=== PATIENT | female | born 1985 | race Caucasian/White ===

== ENCOUNTER 2016-09-07 15:21 | Outpatient (CLI) ==
[2016-07-06 11:06] VITALS: BMI 18.1
[2016-09-07 15:36] LABS: BASOPHILS # (AUTO) 0.1 K/uL (0-0.2); BASOPHILS % (AUTO) 1.4 % (0.0-3.0); EOSINOPHILS # (AUTO) 0.6 K/ul (0.0-0.7); EOSINOPHILS % (AUTO) 9.6 % (0.0-7.0); HEMATOCRIT 40.8 % (37.0-47.0); HEMOGLOBIN 13.6 g/dl (12.0-16.0); IMMATURE GRANULOCYTE % (AUTO) 0.3 % (0.0-5.0); LYMPHOCYTES # (AUTO) 1.5 K/uL (0.60-3.4); MEAN CORPUSCULAR HEMOGLOBIN 27.8 pg (27.0-31.0); MEAN CORPUSCULAR HGB CONC 33.3 (31.8-35.4); MEAN CORPUSCULAR VOLUME 83.4 fl (81.0-99.0); MONOCYTES # (AUTO) 0.5 K/uL (0.4-2.0); MONOCYTES % (AUTO) 8.2 (0-10); NEUTROPHILS # (AUTO) 3.9 K/ul (2.0-6.9); NEUTROPHILS % (AUTO) 58.5; PLATELET COUNT 223 10^3/uL (140-440); RED BLOOD COUNT 4.89 10^6/ul (4.20-5.40); WHITE BLOOD COUNT 6.58 K/ul (4.6-10.2)
[2016-09-07 15:59] LABS: BILIRUBIN,URINE Negative (NEGATIVE); KETONES,URINE Negative (NEGATIVE); LEUKOCYTE ESTERASE ,URINE Negative (NEGATIVE); NITRITE,URINE Negative (NEGATIVE); PROTEIN,URINE Negative (NEGATIVE); URINE, BLOOD Negative (NEGATIVE)
[2016-09-07 16:02] LABS: ALBUMIN 4.2 g/dL (3.4-5.0); ALBUMIN/GLOBULIN RATIO 1.35; ANION GAP 12.3; BILIRUBIN,TOTAL 0.58 mg/dL (0.00-1.20); BUN/CREATININE RATIO 10.98; CALCIUM 9.7 mg/dL (8.2-10.2); CREATININE 0.91 mg/dL (0.60-1.30); POTASSIUM 4.3 mmol/L (3.5-5.10); TOTAL PROTEIN 7.3 g/dL (6.4-8.2)
--- NOTE | 2016-09-07 16:05 | DI ---
EXAM: Two views of the chest. History: Fever. Findings: Heart size is normal. No focal consolidation. No appreciable pleural fluid and no pneum othorax. No acute osseous abnormalities. Impression: No acute cardiopulmonary process.
[2016-09-07 16:08] LABS: ADD URINE MICROSCOPIC NO
== END 2016-09-07 15:22 | disposition home or self-care (01) ==
LOC: LAB 15:21
PROVIDERS: ATTEND Nurse Practitioner Family
DX: R50.9 Fever, unspecified (principal); D64.9 Anemia, unspecified; R05 Cough; J98.8 Other specified respiratory disorders
CPT/HCPCS: 36415; 80053; 81001; 82150; 83690; 85025

== ENCOUNTER 2017-05-20 13:38 | Emergency (ER) ==
[2017-05-20 13:42] VITALS: BP 118/80; TEMP 98.5; BMI 19.5
[2017-05-20] MEDS ORDERED: NORCO 10-325 PO STA (14:07)
[2017-05-20 14:11] LABS: BASOPHILS # (AUTO) 0.1 K/uL (0-0.2); BASOPHILS % (AUTO) 1.2 % (0.0-3.0); EOSINOPHILS # (AUTO) 0.4 K/ul (0.0-0.7); EOSINOPHILS % (AUTO) 5.8 % (0.0-7.0); HEMATOCRIT 38.9 % (37.0-47.0); HEMOGLOBIN 13.8 g/dl (12.0-16.0); IMMATURE GRANULOCYTE % (AUTO) 0.3 % (0.0-5.0); LYMPHOCYTES % (AUTO) 26.9 (10.0-50.0); MEAN CORPUSCULAR HGB CONC 35.5 (31.8-35.4); MEAN CORPUSCULAR VOLUME 84.6 fl (81.0-99.0); MONOCYTES # (AUTO) 0.4 K/uL (0.4-2.0); MONOCYTES % (AUTO) 5.4 (0-10); NEUTROPHILS # (AUTO) 4.5 K/ul (2.0-6.9); NEUTROPHILS % (AUTO) 60.4; PLATELET COUNT 246 10^3/uL (140-440); WHITE BLOOD COUNT 7.44 K/ul (4.6-10.2)
[2017-05-20 14:36] LABS: ALBUMIN/GLOBULIN RATIO 1.33; ANION GAP 12.2; BILIRUBIN,TOTAL 0.51 mg/dL (0.00-1.20); BUN/CREATININE RATIO 11.9; CALCIUM 9.5 mg/dL (8.2-10.2); CREATININE 0.84 mg/dL (0.60-1.30); POTASSIUM 4.2 mmol/L (3.5-5.10)
--- NOTE | 2017-05-20 15:46 | CT ---
EXAM: CTA CHEST (PE PROTOCOL) HISTORY: Posterior chest pain TECHNIQUE: CTA with intravenous contrast. Multiplanar images were provided with 3-D reconstructions . 100 mL Omnipaque. COMPARISON: None FINDINGS: No pulmonary arterial filling defect. Normal heart size. No pericardial effusion. Normal thoracic aorta. No mediastinal or hilar lymphadenopathy. Lungs are clear. Normal vascularity. No pleural fluid or pleural thickening. There is no pneumotho rax. The bones are within normal limits. Prominent liver. IMPRESSION: 1. No pulmonary arterial thromboembolism or aortic abnormality identified. 2. Lungs are clear. 3. Prominent liver size.
--- NOTE | 2017-05-20 16:04 | ED.PDOC ---
General ED Provider: Dr. STEPHANIE CORCORAN Chief Complaint: Back Pain Stated Complaint: thoracic back pain Time Seen by Physician: 13:39 Mode of Arrival: Walk-In Information Source: Patient Exam Limitations: No limitations Primary Care Provider: RIKKI LARIOS Nursing and Triage Documentation Reviewed and Agree: Yes Musculoskeletal Complaint Exam - Back Pain Complaint/Exam Mechanism of Injury: Reports: No known trauma Onset/Duration: upper back pain atraumatic Symptoms Are: Still present Timing: Constant Episodes Lasting: Days Initial Severity: Moderate Current Severity: Moderate Location: Reports: Discrete (between shoulder blades) Character: Reports: Sharp Aggravating: Reports: Movements, Lifting, Bending, Walking Alleviating: Reports: Rest, Position Associated Signs and Symptoms: Denies: Swelling, Redness, Bruising, Fever, Weakness, Numbness, Tingling, Abdominal pain, Flank pain, Bladder incontinence, Bowel incontinence, Weight loss, Pain with weight bearing Related History: Reports: Similar episode TAD Risk Factors: Reports: None AAA Risk Factors: Reports: None Cauda Equina Risk Factors: Reports: None Epidural Abcess Risk Factors: Reports: None Related Surgical History: Reports: None Focal Tenderness: No Paraspinal Muscle Tenderness: No Paraspinal Muscle Spasm: No Scoliosis: No Lordosis: No Kyphosis: No SLR Test: Right Negative, Left Negative Hip Motion Testing Pain: Right Negative, Left Negative Focal Weakness: Present: None Focal Sensory Loss: Present: None Gait: Present: Normal Differential Diagnoses: Strain, Sprain Review of Systems - Review Of Systems Constitutional: Reports: No symptoms Eyes: Reports: No symptoms Ears, Nose, Mouth, Throat: Reports: No symptoms Respiratory: Reports: No symptoms Cardiac: Reports: No symptoms GI: Reports: No symptoms : Reports: No symptoms Musculoskeletal: Reports: Back pain Skin: Reports: No symptoms Neurological: Reports: No symptoms Endocrine: Reports: No symptoms Hematologic/Lymphatic: Reports: No symptoms All Other Systems: Reviewed and Negative Past Medical History - Past Medical History Previously Healthy: Yes Endocrine: Reports: None Cardiovascular: Reports: None Respiratory: Reports: None Hematological: Reports: None Gastrointestinal: Reports: None Genitourinary: Reports: None Neuro/Psych: Reports: None Musculoskeletal: Reports: None Cancer: Reports: None Last Menstrual Period: n/a - Surgical History General Surgical History: Reports: None - Family History Family History: Reports: None - Social History Smoking Status: Former smoker Hx Substance Use: No Alcohol Screening: None Physical Exam - Physical Exam Appearance: Well-appearing, No pain distress, Well-nourished Eyes: MILLIE, EOMI, Conjunctiva clear ENT: Ears normal, Nose normal, Oropharynx normal Respiratory: Airway patent, Breath sounds clear, Breath sounds equal, Respirations nonlabored Cardiovascular: RRR, Pulses normal, No rub, No murmur GI/: Soft, Nontender, No masses, Bowel sounds normal, No Organomegaly Musculoskeletal: Normal strength, ROM intact, No edema, No calf tenderness Skin: Warm, Dry, Normal color Neurological: Sensation intact, Motor intact, Reflexes intact, Cranial nerves intact, Alert, Oriented Psychiatric: Affect appropriate, Mood appropriate Interpretation - Radiology Interpretation Radiology Interpretation By: Radiologist Radiology Results: No acute changes Critical Care Note - Critical Care Note Total Time (mins): 0 Course - Course Hematology/Chemistry: 05/20/17 14:00 05/20/17 14:00 Orders, Labs, Meds: Lab Review 05/20/17 05/20/17 14:00 14:00 WBC 7.44 RBC 4.60 Hgb 13.8 Hct 38.9 MCV 84.6 MCH 30.0 MCHC 35.5 H RDW Coeff of Prince 12.6 Plt Count 246 Immature Gran % (Auto) 0.3 Neut % (Auto) 60.4 Lymph % (Auto) 26.9 Lucas % (Auto) 5.4 Eos % (Auto) 5.8 Baso % (Auto) 1.2 Immature Gran # (Auto) 0.0 Neut # 4.5 Lymph # 2.0 Lucas # 0.4 Eos # 0.4 Baso # 0.1 Sodium 143 Potassium 4.2 Chloride 108 H Carbon Dioxide 27 Anion Gap 12.2 BUN 10 Creatinine 0.84 Estimated GFR (MDRD) 78.00 BUN/Creatinine Ratio 11.90 Glucose 85 Calcium 9.5 Total Bilirubin 0.51 AST 11 L ALT 7 L Alkaline Phosphatase 67 Total Protein 7.0 Albumin 4.0 Globulin 3.0 Albumin/Globulin Ratio 1.33 Orders Category Date Time Status EKG-(ED ONLY) Stat CARDIO 05/20/17 13:55 Ordered NPO REMINDER: IMAGING ONCE CARE 05/20/17 13:54 Active IV [ED IV/MEDIPORT/POWERPORT] .ONCE EMERGENCY 05/20/17 14:02 Active CBC W/ AUTO DIFF Stat LAB 05/20/17 13:54 Ordered COMPREHENSIVE METABOLIC PANEL Stat LAB 05/20/17 13:54 Ordered 0.9 % Sodium Chloride [Saline Flush] MEDS 05/20/17 14:02 Ordered 1 syr IVF PRN PRN Hydrocodone Bit/Acetaminophen [[place] 10-325] MEDS 05/20/17 14:07 Stat 1 tab PO ONCE STA CTA ANGIO CHEST Stat RADS 05/20/17 13:54 Ordered Medications Generic Name Dose Route Start Last Admin Trade Name Freq PRN Reason Stop Dose Admin Sodium Chloride 1 syr 05/20/17 14:02 Saline Flush IVF PRN PRN To flush IV Discontinued Medications Generic Name Dose Route Start Last Admin Trade Name Freq PRN Reason Stop Dose Admin Acetaminophen/Hydrocodone Bitart 1 tab 05/20/17 14:07 05/20/17 14:29 [place] 10-325 PO 05/20/17 14:08 1 tab ONCE STA Administration Vital Signs: Temp Pulse Resp BP Pulse Ox 05/20/17 13:39 98.5 F 73 20 118/80 98 Departure - Departure Time of Disposition: 16:10 Disposition: HOME SELF-CARE Discharge Problem: Backache Thoracic back pain Qualifiers: Chronicity: acute Back pain laterality: midline Qualified Code(s): M54.6 - Pain in thoracic spine Instructions: Back Pain (ED) Condition: Good Pt referred to PMD for follow-up: Yes Additional Instructions: Please call your Family Physician as soon as possible to schedule a follow-up appointment. Allergies/Adverse Reactions: Allergies No Known Allergies Allergy (Verified 05/20/17 13:42) Home Medications: Ambulatory Orders 1 [No Reported Medications] 05/20/17
== END 2017-05-20 16:20 | disposition home or self-care (01) ==
LOC: ED 13:38
DX: M54.6 Pain in thoracic spine (principal)
CPT/HCPCS: 36415; 80053; 85025; 93005; 93010; 99283

== ENCOUNTER 2017-07-31 13:16 | Emergency (ER) ==
[2017-07-31 13:22] VITALS: BP 111/74; TEMP 100.5; BMI 18.6
[2017-07-31] MEDS ORDERED: TORADOL IM STA (13:35)
--- NOTE | 2017-07-31 13:38 | ED.PDOC ---
General ED Provider: Dr. RIKKI CORTES Chief Complaint: Back Pain Stated Complaint: Hurting in the right side back, also frequency and urgency of urination. Time Seen by Physician: 13:35 Mode of Arrival: Walk-In Information Source: Patient Primary Care Provider: RIKKI CORTES[facility] Nursing and Triage Documentation Reviewed and Agree: Yes Musculoskeletal Complaint Exam - Back Pain Complaint/Exam Mechanism of Injury: Reports: No known trauma Symptoms Are: Still present Timing: Constant Episodes Lasting: Hours Initial Severity: Moderate Current Severity: Moderate Location: Reports: Discrete Character: Reports: Dull, Aching Aggravating: Reports: Movements Alleviating: Reports: None Associated Signs and Symptoms: Reports: Fever, Flank pain. Denies: Swelling, Redness, Bruising, Weakness, Numbness, Tingling, Abdominal pain, Bladder incontinence, Bowel incontinence, Weight loss, Pain with weight bearing TAD Risk Factors: Reports: None AAA Risk Factors: Reports: None Cauda Equina Risk Factors: Reports: None Epidural Abcess Risk Factors: Reports: None Related Surgical History: Reports: None Focal Tenderness: Yes Paraspinal Muscle Tenderness: Yes Paraspinal Muscle Spasm: Yes Scoliosis: No Lordosis: No Kyphosis: No SLR Test: Right Negative, Left Negative Hip Motion Testing Pain: Right Negative, Left Negative Focal Weakness: Present: None Focal Sensory Loss: Present: None Gait: Present: Normal Differential Diagnoses: Renal Colic, Strain, Other (UTI) Review of Systems - Review Of Systems Constitutional: Reports: Fever, Malaise, Weakness Eyes: Reports: No symptoms Ears, Nose, Mouth, Throat: Reports: No symptoms Respiratory: Reports: No symptoms Cardiac: Reports: No symptoms GI: Reports: No symptoms : Reports: Dysuria, Frequency Musculoskeletal: Reports: Back pain Skin: Reports: No symptoms Neurological: Reports: No symptoms Endocrine: Reports: No symptoms Hematologic/Lymphatic: Reports: No symptoms All Other Systems: Reviewed and Negative Past Medical History - Past Medical History Previously Healthy: Yes Endocrine: Reports: None Cardiovascular: Reports: None Respiratory: Reports: None Hematological: Reports: None Gastrointestinal: Reports: None Genitourinary: Reports: None Neuro/Psych: Reports: None Musculoskeletal: Reports: None Cancer: Reports: None Last Menstrual Period: na - Surgical History General Surgical History: Reports: None - Family History Family History: Reports: None - Social History Smoking Status: Current some day smoker Hx Substance Use: No Alcohol Screening: None - Immunizations Tetanus Shot up to Date: Yes Physical Exam - Physical Exam Appearance: Ill-appearing Eyes: MILLIE, EOMI, Conjunctiva clear ENT: Ears normal, Nose normal, Oropharynx normal Respiratory: Airway patent, Breath sounds clear, Breath sounds equal, Respirations nonlabored Cardiovascular: RRR, Pulses normal, No rub, No murmur GI/: Soft, Tender Musculoskeletal: Normal strength, ROM intact, No edema, No calf tenderness Skin: Warm, Dry, Normal color Neurological: Sensation intact, Motor intact, Reflexes intact, Cranial nerves intact, Alert, Oriented Psychiatric: Affect appropriate, Mood appropriate Interpretation - Radiology Interpretation Radiology Interpretation By: Radiologist Radiology Results: Positive Exam Interpreted: CT Scan Critical Care Note - Critical Care Note Total Time (mins): 15 Course - Course Hematology/Chemistry: 07/31/17 13:52 07/31/17 13:52 Orders, Labs, Meds: Lab Review 07/31/17 07/31/17 07/31/17 13:26 13:26 13:52 WBC 10.06 RBC 4.84 Hgb 14.0 Hct 40.0 MCV 82.6 MCH 28.9 MCHC 35.0 RDW Coeff of [place] 12.2 Plt Count 179 Immature Gran % (Auto) 0.2 Neut % (Auto) 85.5 Lymph % (Auto) 8.7 L [place] % (Auto) 5.0 Eos % (Auto) 0.2 Baso % (Auto) 0.4 Immature Gran # (Auto) 0.0 Neut # 8.6 H Lymph # 0.9 [place]ven # 0.5 Eos # 0.0 Baso # 0.0 Sodium Potassium Chloride Carbon Dioxide Anion Gap BUN Creatinine Estimated GFR (MDRD) BUN/Creatinine Ratio Glucose Calcium Total Bilirubin AST ALT Alkaline Phosphatase Total Protein Albumin Globulin Albumin/Globulin Ratio Urine Color Yellow Urine Clarity Cloudy Urine pH 5.5 Ur Specific Hew[place] 1.010 Urine Protein 2+ Urine Glucose (UA) Negative Urine Ketones 3+ Urine Blood 2+ Urine Nitrite Negative Urine Bilirubin 1+ Urine Urobilinogen 2.0 Ur Leukocyte Esterase 2+ Urine Microscopic RBC 5-10 Urine Microscopic WBC 20-30 Ur Squamous Epith Cells 2-5 Urine Bacteria 2+ Urine Test Negative 07/31/17 13:52 WBC RBC Hgb Hct MCV MCH MCHC RDW Coeff of Prince Plt Count Immature Gran % (Auto) Neut % (Auto) Lymph % (Auto) [place] % (Auto) Eos % (Auto) Baso % (Auto) Immature Gran # (Auto) Neut # Lymph # Craven # Eos # Baso # Sodium 135 L Potassium 3.4 L Chloride 102 Carbon Dioxide 20 L Anion Gap 16.4 BUN 13 Creatinine 0.89 Estimated GFR (MDRD) 73.00 BUN/Creatinine Ratio 14.60 Glucose 95 Calcium 9.7 Total Bilirubin 1.13 AST 10 L ALT 8 L Alkaline Phosphatase 75 Total Protein 7.8 Albumin 3.8 Globulin 4.0 Albumin/Globulin Ratio 0.95 Urine Color Urine Clarity Urine pH Ur Specific Hew[place] Urine Protein Urine Glucose (UA) Urine Ketones Urine Blood Urine Nitrite Urine Bilirubin Urine Urobilinogen Ur Leukocyte Esterase Urine Microscopic RBC Urine Microscopic WBC Ur Squamous Epith Cells Urine Bacteria Urine Test Orders Category Date Time Status CBC W/ AUTO DIFF Stat LAB 07/31/17 13:52 Completed CMP [COMPREHENSIVE METABOLIC PANEL] Stat LAB 07/31/17 13:52 Completed URINALYSIS C & S IF INDICATED Stat LAB 07/31/17 13:26 Completed URINE CULTURE Stat LAB 07/31/17 13:26 Received URINE Stat LAB 07/31/17 13:26 Completed Ceftriaxone Sodium [Rocephin] MEDS 07/31/17 14:09 Discontinued 1 gm IM ONCE STA Ketorolac Tromethamine [Toradol] MEDS 07/31/17 13:35 Discontinued 30 mg IM ONCE STA Lidocaine HCl/Pf [Lidocaine HCl 1% Sdv] MEDS 07/31/17 14:09 Discontinued 5 ml SUBCUT ONCE STA CT ABDOMEN/PELVIS WO CONTRAST Stat RADS 07/31/17 13:35 Completed Medications Discontinued Medications Generic Name Dose Route Start Last Admin Trade Name Ana PRN Reason Stop Dose Admin Ceftriaxone Sodium 1 gm 07/31/17 14:09 07/31/17 14:43 Rocephin IM 07/31/17 14:10 1 gm ONCE STA Administration Ketorolac Tromethamine 30 mg 07/31/17 13:35 07/31/17 13:52 Toradol IM 07/31/17 13:36 30 mg ONCE STA Administration Lidocaine HCl 5 ml 07/31/17 14:09 07/31/17 14:44 Lidocaine Hcl 1% Sdv SUBCUT 07/31/17 14:10 1.2 ml ONCE STA Administration Vital Signs: Temp Pulse Resp BP Pulse Ox 07/31/17 13:17 100.5 F H 103 H 16 111/74 99 Departure - Departure Time of Disposition: 15:32 Disposition: HOME SELF-CARE Discharge Problem: Pyelonephritis Instructions: Urinary Tract Infection in Women (ED) Condition: Good Pt referred to PMD for follow-up: Yes Additional Instructions: Increase Hydration Patient wanted out patient treatment f/u at [facility] in 1-2 days Prescriptions: Ciprofloxacin HCl [Cipro] 250 mg PO Q12HR #14 tablet Hydrocodone/Acetaminophen [[place] 5-325 Tablet] 1 tab PO TID PRN #10 tablet PRN Reason: PAIN Allergies/Adverse Reactions: Allergies No Known Allergies Allergy (Verified 07/31/17 13:25) Home Medications: Ambulatory Orders Hydrocodone/Acetaminophen [[place] 10-325 Tablet] 1 each PO Q8HR #10 tablet Ciprofloxacin HCl [Cipro] 250 mg PO Q12HR #14 tablet 07/31/17 Hydrocodone/Acetaminophen [Leon 5-325 Tablet] 1 tab PO TID PRN #10 tablet 07/31 Disposition Discussed With: Patient, Family
[2017-07-31 13:40] LABS: BILIRUBIN,URINE 1+ (NEGATIVE); KETONES,URINE 3+ (NEGATIVE); LEUKOCYTE ESTERASE ,URINE 2+ (NEGATIVE); NITRITE,URINE Negative (NEGATIVE); PH,URINE 5.5 (5-9); PROTEIN,URINE 2+ (NEGATIVE); URINE, BLOOD 2+ (NEGATIVE)
[2017-07-31 13:41] LABS: ADD URINE MICROSCOPIC YES; URINE PREGNANCY INTERNAL QC INTERNAL QC VALID
[2017-07-31 13:42] LABS: BACTERIA,URINE 2+ (NOT PRESENT)
[2017-07-31 13:56] LABS: BASOPHILS % (AUTO) 0.4 % (0.0-3.0); EOSINOPHILS % (AUTO) 0.2 % (0.0-7.0); IMMATURE GRANULOCYTE % (AUTO) 0.2 % (0.0-5.0); LYMPHOCYTES # (AUTO) 0.9 K/uL (0.60-3.4); LYMPHOCYTES % (AUTO) 8.7 (10.0-50.0); MEAN CORPUSCULAR HEMOGLOBIN 28.9 pg (27.0-31.0); MEAN CORPUSCULAR VOLUME 82.6 fl (81.0-99.0); MONOCYTES # (AUTO) 0.5 K/uL (0.4-2.0); NEUTROPHILS # (AUTO) 8.6 K/ul (2.0-6.9); NEUTROPHILS % (AUTO) 85.5; PLATELET COUNT 179 10^3/uL (140-440); RED BLOOD COUNT 4.84 10^6/ul (4.20-5.40); WHITE BLOOD COUNT 10.06 K/ul (4.6-10.2)
[2017-07-31] MEDS ORDERED: LIDOCAINE HCL 1% SDV SUBCUT STA (14:09)
[2017-07-31] MEDS ORDERED: ROCEPHIN IM STA (14:09)
[2017-07-31 14:14] LABS: ALBUMIN 3.8 g/dL (3.4-5.0); ALBUMIN/GLOBULIN RATIO 0.95; ANION GAP 16.4; BILIRUBIN,TOTAL 1.13 mg/dL (0.00-1.20); BUN/CREATININE RATIO 14.6; CALCIUM 9.7 mg/dL (8.2-10.2); CREATININE 0.89 mg/dL (0.60-1.30); POTASSIUM 3.4 mmol/L (3.5-5.10); TOTAL PROTEIN 7.8 g/dL (6.4-8.2)
--- NOTE | 2017-07-31 14:19 | CT ---
EXAM: CT abdomen pelvis without contrast HISTORY: Right flank pain COMPARISON: None TECHNIQUE: CT abdomen pelvis performed without intravenous contrast. Coronal and sagittal reformatt ed images obtained. FINDINGS: Granulomatous calcification left lung base. No free air. No acute abnormalities of the b ones. Heart normal in size. Evaluation organ parenchyma limited without contrast. Liver appears no rmal. Gallbladder appears normal. Pancreas appears normal. Spleen is top normal in size. Adrenals appear normal. Aorta normal in caliber. Patient status post hysterectomy. No lymphadenopathy or a scites. Minimal fat-containing umbilical hernia. Stomach appears normal. No dilated loops small tesfaye wel. Normal appendix probably partially visualized on image 110. Colon unremarkable. No nephrolith iasis. Questionable minimal right pelviectasis. There is right perinephric and proximal periureter al stranding. Left kidney unremarkable. Bladder only minimally distended and poorly evaluated, gross ly unremarkable. Ureters are very difficult to trace, without definitive ureteral calculus. 3.5 mm calcification right pelvis, probably a phlebolith. Bladder only minimally distended and poorly evalu ated, grossly unremarkable IMPRESSION: Right perinephric and proximal ureteral stranding. Possible minimal right pelviectasis. No definitive obstructing calculus identified, noting the ureters are very difficult to trace. 3.5 mm calcification right pelvis, probably a phlebolith. Differential diagnosis includes pyelonephriti s/urinary tract infection and non identified obstructing etiology such as calculus. Findings could be correlate with contrast-enhanced CT.
== END 2017-07-31 16:04 | disposition home or self-care (01) ==
LOC: ED 13:16
DX: N12 Tubulo-interstitial nephritis, not specified as acute or chronic (principal); N39.0 Urinary tract infection, site not specified
CPT/HCPCS: 36415; 80053; 81001; 81025; 85025; 87086; 87186; 96372; 99283

== ENCOUNTER 2018-12-05 16:28 | Emergency (ER) ==
[2018-12-05 16:32] VITALS: BP 107/77; TEMP 99.8; BMI 18.3
--- NOTE | 2018-12-05 16:38 | ED.PDOC ---
General ED Provider: Dr. MILLIE ELLISON Chief Complaint: Fever Stated Complaint: "I have a fever,cough a lot/at home/ and have a PMHx of pneumonia". Time Seen by Physician: 16:30 Mode of Arrival: Walk-In Information Source: Patient Exam Limitations: No limitations Primary Care Provider: NAKIA BUNN Nursing and Triage Documentation Reviewed and Agree: Yes Does patient meet sepsis criteria?: No System Inflammatory Response Syndrome: Not Applicable Sepsis Protocol: For patient's 13 years and over: Temp is 96.8 and below OR 101 and greater Pulse >90 BPM Resp >20/minute Acutely Altered Mental Status Are patient's symptoms suggestive of a new infection, such as: -Pneumonia -Skin, Soft Tissue -Endocarditis -UTI -Bone, Joint Infection -Implantable Device -Acute Abdominal Infection -Wound Infection -Meningitis -Blood Stream Catheter Infection -Unknown Respiratory Complaint Exam - Respiratory Complaint/Exam Onset/Duration: few days Symptoms Are: Still present Timing: Constant Initial Severity: Mild Current Severity: Mild Location: Chest Character: Reports: Non-productive cough Aggravating: Reports: Passive smoke exposure, Weather Alleviating: Reports: None Associated Signs and Symptoms: Reports: Fever, Chills, Wheezing Related History: Reports: Similar episode History of Healthcare-Acquired Pneumonia: No Related Surgical History: Reports: None Pulmonary Embolism Risk Factors: Smoking Cardiac Risk Factors: Reports: None Pseudomonas Risk Factors: Reports: None Tuberculosis Risk Factors: Reports: None Status Asthmaticus Risk Factors: Reports: Smoke exposure Home Oxygen Use: No Recent Stress Test: No Recent Echo/LV Function: No Current Antibiotic Use: No Current Asthma Medication Use: No Respiratory Distress: None Inadequate Respiratory Effort: No Dysphagia Present: No Stridor Present: No JVD Present: No Accessory Muscle Use: No Retractions: Not Present Diminished Breath Sounds: Yes Prolonged Respiration: Expiratory phase Sinus Tenderness: None Grunting Respirations: No Kussmaul Respirations: No Differential Diagnoses: Asthma, Pneumonia, Bronchospasm, Influenza Review of Systems - Review Of Systems Constitutional: Reports: Chills, Fever Eyes: Reports: No symptoms Ears, Nose, Mouth, Throat: Reports: No symptoms Respiratory: Reports: Cough, Wheezing Cardiac: Reports: No symptoms GI: Reports: No symptoms : Reports: No symptoms Musculoskeletal: Reports: No symptoms, Muscle pain Neurological: Reports: No symptoms Endocrine: Reports: No symptoms Hematologic/Lymphatic: Reports: No symptoms All Other Systems: Reviewed and Negative Past Medical History - Past Medical History Previously Healthy: Yes Endocrine: Reports: None Cardiovascular: Reports: None Respiratory: Reports: None Hematological: Reports: None Gastrointestinal: Reports: None Genitourinary: Reports: None Neuro/Psych: Reports: None Musculoskeletal: Reports: None Cancer: Reports: None Last Menstrual Period: none - Surgical History General Surgical History: Reports: None - Family History Family History: Reports: None - Social History Smoking Status: Current some day smoker Hx Substance Use: No Alcohol Screening: None Physical Exam - Physical Exam Appearance: Well-appearing Ill-appearing: None Pain Distress: None Eyes: MILLIE ENT: Ears normal Neck: Supple Respiratory: Airway patent Cardiovascular: RRR GI/: Tender Musculoskeletal: Normal strength Skin: Warm Neurological: Sensation intact Psychiatric: Affect appropriate Critical Care Note - Critical Care Note Total Time (mins): 0 Course - Course Hematology/Chemistry: 12/05/18 16:50 Orders, Labs, Meds: Lab Review 12/05/18 12/05/18 16:50 17:51 WBC 3.20 L RBC 4.87 Hgb 14.8 Hct 42.8 MCV 87.9 MCH 30.4 MCHC 34.6 RDW Coeff of [place] 12.7 Plt Count 173 Immature Gran % (Auto) 0.3 Neut % (Auto) 54.1 Lymph % (Auto) 31.6 [place] % (Auto) 10.9 H Eos % (Auto) 2.2 Baso % (Auto) 0.9 Immature Gran # (Auto) 0.0 Neut # (Auto) 1.7 L Lymph # (Auto) 1.0 [place] # (Auto) 0.4 Eos # (Auto) 0.1 Baso # (Auto) 0.0 Influ A Molecular Assay Positive by naat H Influ B Molecular Assay Negative by naat Orders Category Date Time Status NEBULIZER TREATMENT Stat CARDIO 12/05/18 16:44 Completed IV [ED IV/MEDIPORT/POWERPORT] .ONCE EMERGENCY 12/05/18 16:46 Active CBC W/ AUTO DIFF Stat LAB 12/05/18 16:50 Completed MOLECULAR FLU A & B [FLU A/B MOLECULAR] Stat LAB 12/05/18 17:51 Completed 0.9 % Sodium Chloride [Saline Flush] MEDS 12/05/18 16:46 Active 1 syr IVF PRN PRN Albuterol Sulfate 0.083% Neb [Albuterol 0.083% Neb] MEDS 12/05/18 16:44 Discontinued 1 vial NEB ONCE STA Methylprednisolone Sod Succ/Pf [Solu-Medrol 125 mg] MEDS 12/05/18 16:45 Discontinued 60 mg IVP ONCE STA CHEST, 2 VIEWS PA & LAT Stat RADS 12/05/18 16:42 Taken Medications Generic Name Dose Route Start Last Admin Trade Name Freq PRN Reason Stop Dose Admin Sodium Chloride 1 syr 12/05/18 16:46 12/05/18 17:16 Saline Flush IVF 1 syr PRN PRN Administration To flush IV Discontinued Medications Generic Name Dose Route Start Last Admin Trade Name Freq PRN Reason Stop Dose Admin Albuterol Sulfate 1 vial 12/05/18 16:44 12/05/18 16:54 Albuterol 0.083% Neb NEB 12/05/18 16:45 1 vial ONCE STA Administration Methylprednisolone Sodium Succinate 60 mg 12/05/18 16:45 12/05/18 17:16 Solu-Medrol 125 Mg IVP 12/05/18 16:46 60 mg ONCE STA Administration Vital Signs: Temp Pulse Resp BP Pulse Ox 12/05/18 16:28 99.8 F H 95 H 18 107/77 99 Departure - Departure Time of Disposition: 18:19 Disposition: HOME SELF-CARE Discharge Problem: Viral syndrome Instructions: Fever in Adults (ED) Condition: Good Pt referred to PMD for follow-up: Yes IPMP verified?: Yes Additional Instructions: Tamiflu 75 mg tab bid x 7 days, Allergies/Adverse Reactions: Allergies No Known Allergies Allergy (Verified 12/05/18 16:33) Home Medications: Ambulatory Orders 1 [No Reported Medications] 12/05/18 Disposition Discussed With: Patient
[2018-12-05] MEDS ORDERED: ALBUTEROL 0.083% NEB NEB STA (16:44)
[2018-12-05] MEDS ORDERED: SOLU-MEDROL 125 MG IVP STA (16:45)
--- NOTE | 2018-12-06 07:19 | DI ---
EXAM: CHEST FRONTAL AND LATERAL VIEWS HISTORY: Cough, fever. COMPARISON: 09/07/2016 FINDINGS: Heart size and mediastinal contour remain within normal limits. No acute infiltrates. Normal vascularity with no pleural fluid or pneumothorax. The bony thorax has no acute finding. IMPRESSION: No acute process.
== END 2018-12-05 18:30 | disposition home or self-care (01) ==
LOC: ED 16:28
DX: J11.1 Influenza due to unidentified influenza virus with other respiratory manifestations (principal); F17.210 Nicotine dependence, cigarettes, uncomplicated
CPT/HCPCS: 36415; 85025; 87502; 94640; 96374; 99283

== ENCOUNTER 2018-12-15 17:05 | Emergency (ER) ==
[2018-12-15 17:13] VITALS: BP 116/77; TEMP 98.6; BMI 18.6
--- NOTE | 2018-12-15 17:41 | ED.PDOC ---
General ED Provider: Dr. STEPHANIE CORCORAN Chief Complaint: Respiratory Complaint Stated Complaint: flu like symptoms cough, ear pain Time Seen by Physician: 17:10 Mode of Arrival: Walk-In Information Source: Patient Exam Limitations: No limitations Primary Care Provider: NAKIA BUNN Nursing and Triage Documentation Reviewed and Agree: Yes Does patient meet sepsis criteria?: No System Inflammatory Response Syndrome: Not Applicable Sepsis Protocol: For patient's 13 years and over: Temp is 96.8 and below OR 101 and greater Pulse >90 BPM Resp >20/minute Acutely Altered Mental Status Are patient's symptoms suggestive of a new infection, such as: -Pneumonia -Skin, Soft Tissue -Endocarditis -UTI -Bone, Joint Infection -Implantable Device -Acute Abdominal Infection -Wound Infection -Meningitis -Blood Stream Catheter Infection -Unknown EENT Complaint Exam - Throat Complaint/Exam Symptoms Are: Still present Timimg: Intermittent Initial Severity: Mild Current Severity: Mild Aggravating: Reports: None Alleviating: Reports: None Associated Signs and Symptoms: Reports: Nasal congestion. Denies: Fever, Dysphagia, Drooling, Foreign body sensation, Chills, Cough, Wheezing, Hoarseness , Sinus discomfort, Difficulty breathing, Lethargy, Irritability, Decreased activity, Vomiting, Diarrhea, Decreased hearing, Ear drainage Uvula Midline: Yes Lisa-tonsillar Fluctuence: No Lesions: Absent: Lip, Gums, Tongue, Buccal Mucosa, Pharynx Exanthem: Absent: Lip, Gums, Tongue, Buccal Mucosa, Pharynx Vesicles: Absent: Lip, Gums, Tongue, Buccal Mucosa, Pharynx Stridor Present: No Sinus Tenderness Present: No Tonsillar Hypertrophy Present: No Tonsillar Exudate Present: No Lisa-tonsillar Swelling Present: No Adenopathy Present: No Splenomegaly Present: No Differential Diagnoses: Other Review of Systems - Review Of Systems Constitutional: Reports: No symptoms Eyes: Reports: No symptoms Ears, Nose, Mouth, Throat: Reports: Ear pain Respiratory: Reports: No symptoms Cardiac: Reports: No symptoms GI: Reports: No symptoms : Reports: No symptoms Musculoskeletal: Reports: No symptoms Skin: Reports: No symptoms Neurological: Reports: No symptoms Endocrine: Reports: No symptoms Hematologic/Lymphatic: Reports: No symptoms All Other Systems: Reviewed and Negative Past Medical History - Past Medical History Previously Healthy: Yes Endocrine: Reports: None Cardiovascular: Reports: None Respiratory: Reports: None Hematological: Reports: None Gastrointestinal: Reports: None Genitourinary: Reports: None Neuro/Psych: Reports: None Musculoskeletal: Reports: None Cancer: Reports: None Last Menstrual Period: none. - Surgical History General Surgical History: Reports: None - Family History Family History: Reports: None - Social History Smoking Status: Current every day smoker Hx Substance Use: No Alcohol Screening: Occasionally - Immunizations Tetanus Shot up to Date: Yes Physical Exam - Physical Exam Appearance: Well-appearing, No pain distress, Well-nourished Eyes: MILLIE, EOMI, Conjunctiva clear ENT: Ears normal (left right red ), Erythema Respiratory: Airway patent, Breath sounds clear, Breath sounds equal, Respirations nonlabored Cardiovascular: RRR, Pulses normal, No rub, No murmur GI/: Soft, Nontender, No masses, Bowel sounds normal, No Organomegaly Musculoskeletal: Normal strength, ROM intact, No edema, No calf tenderness Skin: Warm, Dry, Normal color Neurological: Sensation intact, Motor intact, Reflexes intact, Cranial nerves intact, Alert, Oriented Psychiatric: Affect appropriate, Mood appropriate Critical Care Note - Critical Care Note Total Time (mins): 0 Course - Course Vital Signs: Temp Pulse Resp BP Pulse Ox 12/15/18 17:05 98.6 F 83 16 116/77 98 Departure - Departure Time of Disposition: 17:41 Disposition: HOME SELF-CARE Discharge Problem: Sinusitis Qualifiers: Sinusitis location: unspecified location Chronicity: unspecified Qualified Code (s): J32.9 - Chronic sinusitis, unspecified Instructions: Sinusitis (ED) Condition: Good Pt referred to PMD for follow-up: Yes IPMP verified?: No Additional Instructions: Please call your Family Physician as soon as possible to schedule a follow-up appointment. Allergies/Adverse Reactions: Allergies No Known Allergies Allergy (Verified 12/05/18 16:33) Home Medications: Ambulatory Orders 1 [No Reported Medications] 12/05/18
== END 2018-12-15 17:51 | disposition home or self-care (01) ==
LOC: ED 17:05
DX: J32.9 Chronic sinusitis, unspecified (principal); F17.210 Nicotine dependence, cigarettes, uncomplicated
CPT/HCPCS: 99282